=== PATIENT | male | born 1995 | race Caucasian/White ===

== ENCOUNTER 2017-10-29 16:21 | Emergency (ER) | payer OTHER ==
[2017-10-29] MEDS ORDERED: KETOROLAC 30 MG/1 ML SDV IVP ONE (16:38)
[2017-10-29] MEDS ORDERED: NS 1,000 ML IV ONE ×2 (16:38)
[2017-10-29] MEDS ORDERED: ONDANSETRON 4 MG/2 ML VIAL IVP ONE (16:38)
--- NOTE | 2017-10-29 16:40 | EDPHY ---
H & P Stated Complaint: abdominal pain 6 days, vomiting Time Seen by Provider: 10/29/17 16:32 HPI/ROS: CHIEF COMPLAINT: Constipation, vomiting HISTORY OF PRESENT ILLNESS: Patient is a 22-year-old man who comes to the emergency department complaining of constipation for the last 6 days as well as intermittent vomiting. He states he has been trying to take Dulcolax pills with moderate success but then his constipation returns. He has had sweats but denies fevers. No blood in his vomit or stool. He states that he will have hours of abdominal cramping that will resolve by afternoon at which time he is able to tolerate p.o. Again. No diarrhea. No surgical history. REVIEW OF SYSTEMS: Constitutional: denies: chills, fever, recent illness, recent injury EENTM: denies: blurred vision, double vision, nose congestion Respiratory: denies: cough, shortness of breath Cardiac: denies: chest pain, irregular heart rate, lightheadedness, palpitations Gastrointestinal/Abdominal: See HPI Genitourinary: denies: dysuria, frequency, hematuria, pain Musculoskeletal: denies: joint pain, muscle pain Skin: denies: lesions, rash, jaundice, bruising Neurological: denies: headache, numbness, paresthesia, tingling, dizziness, weakness Hematologic/Lymphatic: denies: blood clots, easy bleeding, easy bruising Immunologic/allergic: denies: HIV/AIDS, transplant EXAM: GENERAL: Well-appearing, well-nourished and in no acute distress. HEAD: Atraumatic, normocephalic. EYES: Pupils equal round and reactive to light, extraocular movements intact, sclera anicteric, conjunctiva are normal. ENT: TMs normal, nares patent, oropharynx clear without exudates. Slightly dry mucous membranes. NECK: Normal range of motion, supple without lymphadenopathy or JVD. LUNGS: Breath sounds clear to auscultation bilaterally and equal. No wheezes rales or rhonchi. HEART: Regular rate and rhythm without murmurs, rubs or gallops. ABDOMEN: Soft, nontender, normoactive bowel sounds. No guarding, no rebound. No masses appreciated. BACK: No CVA tenderness, no spinal tenderness, step-offs or deformities EXTREMITIES: Normal range of motion, no pitting or edema. No clubbing or cyanosis. NEUROLOGICAL: Cranial nerves II through XII grossly intact. Normal speech, normal gait. 5/5 strength, normal movement in all extremities, normal sensation PSYCH: Normal mood, normal affect. SKIN: Warm, dry, normal turgor, no visible rashes or lesions. Source: Patient, Family, RN/MD Exam Limitations: No limitations - Medical/Surgical History Hx Asthma: No Hx Chronic Respiratory Disease: No Hx Diabetes: No Hx Cardiac Disease: No Hx Renal Disease: No Hx Cirrhosis: No Hx Alcoholism: No Other PMH: constipation, - Family History Significant Family History: No pertinent family hx - Social History Smoking Status: Never smoked Alcohol Use: None Constitutional: Initial Vital Signs Temperature (C) 36.9 C 10/29/17 16:27 Heart Rate 57 L 10/29/17 16:27 Respiratory Rate 16 10/29/17 16:27 Blood Pressure 133/88 H 10/29/17 16:27 O2 Sat (%) 99 10/29/17 16:27 O2 Delivery Mode Room Air Allergies/Adverse Reactions: No Known Allergies Allergy (Unverified 10/29/17 16:36) Home Medications: Medication Instructions Recorded Dulcolax 10/29/17 Ondansetron Odt [Zofran Odt 4 mg 4 mg PO Q4 PRN #20 tab 10/29/17 (RX)] Medical Decision Making ED Course/Re-evaluation: The patient is clinically dehydrated. He has a benign abdominal exam. We will treat with IV fluids and nausea medication and obtain initial lab work. 5:35 p.m. the patient's lab work is reassuring. His white count is slightly elevated. His repeat abdominal exam remains benign and completely nontender. He denies having abdominal pain. He states that he feels completely better. We will continue to hydrate and observe. The patient thinks that he is primarily constipated. We discussed using MiraLax and titrating it at home. I initially suggested cap full every 1 hr until he has loose stools and then to back off. 6:40 p.m. the patient's abdominal exam remains benign. He is no longer vomiting. He has been rehydrated. He is eager to go home. We discussed indications for returning. Differential Diagnosis: Partial list of the Differential diagnosis considered include but were not limited to; constipation, vomiting, gastroenteritis, dehydration and although unlikely based on the history and physical exam, I also considered electrolyte abnormality, appendicitis, perforation, ischemia, volvulus. I discussed these differential diagnoses and the plan with the patient as well as the usual and expected course. The patient understands that the diagnosis is provisional and that in medicine we are not always correct and that further workup is often warranted. Usual and customary warnings were given. All of the patient's questions were answered. The patient was instructed to return to the emergency department should the symptoms at all worsen or return, otherwise to followup with the physician as we discussed. - Data Points Laboratory Results: 10/29/17 16:44 POC Sodium 141 mEq/L mEq/L (135-145) POC Potassium 3.2 mEq/L L mEq/L (3.3-5.0) POC Chloride 105.0 mEq/L mEq/L (97-110) POC Total CO2 24 mEq/L mEq/L (22-31) POC BUN 3 mg/dL L mg/dL (7-23) POC Creatinine 1.2 mg/dL mg/dL (0.7-1.3) POC Glucose 110 mg/dL H mg/dL (70-100) POC Calcium 9.3 mg/dL mg/dL (8.5-10.4) POC Total Bilirubin 0.7 mg/dL mg/dL (0.1-1.4) POC AST 30 IU/L IU/L (17-59) POC ALT 21 IU/L IU/L (21-72) POC Alk Phosphatase 46 IU/L IU/L (38-126) POC Total Protein 7.3 g/dL g/dL (6.3-8.2) POC Albumin 4.5 g/dL g/dL (3.5-5.0) Medications Given: Discontinued Medications Sodium Chloride (Ns) 1,000 mls @ 0 mls/hr IV EDNOW ONE; Wide Open PRN Reason: Protocol Stop: 10/29/17 16:39 Last Admin: 10/29/17 16:52 Dose: 1,000 mls Sodium Chloride (Ns) 1,000 mls @ 0 mls/hr IV EDNOW ONE; Wide Open PRN Reason: Protocol Stop: 10/29/17 16:39 Last Admin: 10/29/17 17:38 Dose: 1,000 mls Ketorolac Tromethamine (Toradol) 30 mg IVP EDNOW ONE Stop: 10/29/17 16:39 Last Admin: 10/29/17 16:50 Dose: 30 mg Ondansetron HCl (Zofran) 4 mg IVP EDNOW ONE Stop: 10/29/17 16:39 Last Admin: 10/29/17 16:48 Dose: 4 mg Point of Care Test Results: CBC CBC Collection Date 10/29/17 CBC Collection Time 16:40 WBC 11.2 RBC 5.43 HGB 15.2 HCT 45.2 PLT 334 Neut # 9.8 Neut 87.4 LYMPH # 0.8 LYMPH 7.4 Other WBC # 0.6 Other WBC 5.2 MCV 83.2 Chemistry 10/29/17 16:44 POC Sodium 141 mEq/L mEq/L (135-145) POC Potassium 3.2 mEq/L L mEq/L (3.3-5.0) POC Chloride 105.0 mEq/L mEq/L (97-110) POC Total CO2 24 mEq/L mEq/L (22-31) POC BUN 3 mg/dL L mg/dL (7-23) POC Creatinine 1.2 mg/dL mg/dL (0.7-1.3) POC Glucose 110 mg/dL H mg/dL (70-100) POC Calcium 9.3 mg/dL mg/dL (8.5-10.4) POC Total Bilirubin 0.7 mg/dL mg/dL (0.1-1.4) POC AST 30 IU/L IU/L (17-59) POC ALT 21 IU/L IU/L (21-72) POC Alk Phosphatase 46 IU/L IU/L (38-126) POC Total Protein 7.3 g/dL g/dL (6.3-8.2) POC Albumin 4.5 g/dL g/dL (3.5-5.0) Departure - Departure Disposition: Home, Routine, Self-Care Clinical Impression: Constipation Qualifiers: Constipation type: unspecified constipation type Qualified Code(s): K59.00 - Constipation, unspecified Vomiting Qualifiers: Vomiting type: unspecified Vomiting Intractability: non-intractable Nausea presence: with nausea Qualified Code(s): R11.2 - Nausea with vomiting, unspecified Condition: Fair Instructions: Constipation (ED), Acute Nausea and Vomiting (ED) Additional Instructions: Use the [id number] MiraLax for constipation. Use 1 cap full every hr until you have loose stools then you may decrease as needed. Referrals: Ronaldo Burger DO [Primary Care Provider] - 2-3 days, call for appt. Prescriptions: Ondansetron Odt [Zofran Odt 4 mg (RX)] 4 mg PO Q4 PRN #20 tab PRN Reason: Nausea & Vomiting
[2017-10-29 18:49] VITALS: BP 115/72
== END 2017-10-29 18:47 | disposition home or self-care (01) ==
LOC: CED 16:21
DX: K59.00 Constipation, unspecified (principal); E86.9 Volume depletion, unspecified
CPT/HCPCS: 80053-PO; 96374; J1885; J2405